=== PATIENT | male | born 1975 | race Two or more races ===

== ENCOUNTER 2017-07-07 01:03 | Emergency (ER) | payer OTHER ==
[~2017-07-07] VITALS: Ht 160 cm; Wt 61.2 kg
[2017-07-07 01:17] VITALS: BP 106/68
--- NOTE | 2017-07-07 02:10 | Emergency Room Report ---
History of Present Illness General Chief Complaint: Overdose Source: EMS Present Illness HPI Is a 48-year-old male who was brought in as a Byron Kirkpatrick. He was found passed out in front of a [facility]. Paramedics that that he was not very responsive and gave him Narcan. There was no response. Patient is more awake now is his name is Ezio and was born in 1974. No trauma. No other complaint. Unable to get much history from him at this moment. Allergies: Coded Allergies: UNABLE TO ASSESS (Unverified , 07/07/17) Patient History Past Medical History: see triage record, old chart reviewed, unable to obtain Past Surgical History: unable to obtain Pertinent Family History: unable to obtain Immunizations: other Reviewed Nursing Documentation: PMH: Agreed, PSxH: Agreed Nursing Documentation-PMH Past Medical History Deferred: Pt Cognitively Impaired Review of Systems Eye: Denies: eye pain, blurred vision ENT: Denies: ear pain, nose congestion, throat swelling Respiratory: Denies: cough, shortness of breath Cardiovascular: Denies: chest pain, palpitations Gastrointestinal: Denies: abdominal pain, diarrhea, nausea, vomiting Musculoskeletal: Denies: back pain, joint pain Skin: Denies: rash Neurological: Denies: headache, numbness Endocrine: Denies: increased thirst, increased urine Hematologic/Lymphatic: Denies: easy bruising All Other Systems: limited - Secondary to mental status Physical Exam Vital Signs Date Time Temp Pulse Resp B/P (MAP) Pulse Ox O2 Delivery O2 Flow Rate FiO2 07/07/17 00:56 97.3 104 14 139/86 99 Room Air vitals normal Sp02 EP Interpretation: reviewed, normal General Appearance: well appearing, no apparent distress, other - sleepy Head: normocephalic, atraumatic Eyes: bilateral eye PERRL, bilateral eye EOMI ENT: hearing grossly normal, normal pharynx Neck: full range of motion, supple, no meningismus Respiratory: chest non-tender, lungs clear, normal breath sounds Cardiovascular #1: regular rate, rhythm, no murmur Gastrointestinal: normal bowel sounds, non tender, no mass, no organomegaly, no bruit, non-distended Musculoskeletal: back normal, normal range of motion Psychiatric: mood/affect normal Skin: warm/dry Medical Decision Making Diagnostic Impression: Primary Impression: Alcohol intoxication Qualified Codes: F10.920 - Alcohol use, unspecified with intoxication, uncomplicated ER Course Patient present with altered mental status secondary alcohol intoxication. No trauma to warrant CT scan. We'll observe him until clinical sobriety. Last Vital Signs Date Time Temp Pulse Resp B/P (MAP) Pulse Ox O2 Delivery O2 Flow Rate FiO2 07/07/17 01:32 88 15 Room Air 07/07/17 01:17 97.3 106/68 96 Status: improved Disposition: HOME, SELF-CARE Condition: Stable Referrals: NOT CHOSEN IPA/MD,REFERRING (PCP) Additional Instructions: stop using drugs and alcohol. Followup with your Dr. in 7 days. Return if worse. WILFRED SAN M.D. Jul 07, 2017 02:09
[2017-07-07 04:14] VITALS: BP 108/63
[2017-07-07 06:55] VITALS: BP 108/63
[2017-07-07] MEDS ORDERED: UNOBMED (07:32)
== END 2017-07-07 06:55 | disposition home or self-care (01) ==
LOC: EDBD → EMR 01:18
DX: F10.129 Alcohol abuse with intoxication, unspecified (principal); R41.82 Altered mental status, unspecified
CPT/HCPCS: 36415; 80300; 80329; 99284

== ENCOUNTER 2017-07-07 07:25 | Emergency (ER) | payer OTHER ==
[~2017-07-07] VITALS: Ht 167.6 cm; Wt 72.6 kg
[2017-07-07] MEDS ORDERED: UNOBMED (07:32)
[2017-07-07 07:38] VITALS: BP 116/83
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
[2017-07-07 07:42] VITALS: BP 116/83
== END 2017-07-07 08:02 | disposition home or self-care (01) ==
LOC: EDBD 07:25 → EMR 07:50
DX: F91.9 Conduct disorder, unspecified (principal); R45.1 Restlessness and agitation
CPT/HCPCS: 99282